=== PATIENT | male | born 1965 | race Caucasian/White ===

== ENCOUNTER 2017-01-21 14:48 | Emergency (ER) | payer OTHER ==
[2017-01-21 14:53] VITALS: RESP 16; TEMP 97.5; O2SAT 96
--- NOTE | 2017-01-21 15:30 | EDPHY ---
H & P Stated Complaint: pain in calf Time Seen by Provider: 01/21/17 14:56 HPI/ROS: CHIEF COMPLAINT: Calf pain HISTORY OF PRESENT ILLNESS: The patient presents to the ED with a several day history of unprovoked left calf pain. The patient has remote history of DVT that was diagnosed in 2013. He was treated for approximately 6 months with Coumadin. The patient does not believe he had hypercoagulable workup at that time. The patient denies any acute chest pain or shortness of breath. The patient denies recent in mobility, surgery or trauma. The patient does report that he runs frequently. The patient denies any additional acute medical complaints. REVIEW OF SYSTEMS: A comprehensive 10 point review of systems is otherwise negative aside from elements mentioned in the history of present illness. Source: Patient - Personal History Current Tetanus/Diphtheria Vaccine: Yes - Medical/Surgical History Hx Asthma: No Hx Chronic Respiratory Disease: No Hx Diabetes: No Hx Cardiac Disease: No Hx Renal Disease: No Hx Cirrhosis: No Hx Alcoholism: No Hx HIV/AIDS: No Hx Splenectomy or Spleen Trauma: No Other PMH: Depression and gout; kidney stone surgery, DVT, COPD - Social History Smoking Status: Never smoked - Physical Exam Exam: General Appearance: Alert, no distress Eyes: Pupils equal and round no pallor or injection ENT, Mouth: Mucous membranes moist Respiratory: There are no retractions, lungs are clear to auscultation Cardiovascular: Regular rate and rhythm Gastrointestinal: Abdomen is soft and nontender, no masses, bowel sounds normal Neurological: A&O, normal motor function, normal sensory exam, normal cranial nerves Skin: Warm and dry, no rashes Musculoskeletal: Neck is supple nontender Extremities: Tenderness to palpation left calf, 2+ dorsalis pedis and posterior tibial pulses, sensation intact to light touch Constitutional: Initial Vital Signs Temperature (C) 36.4 C 01/21/17 14:49 Heart Rate 70 01/21/17 14:49 Respiratory Rate 16 01/21/17 14:49 Blood Pressure 123/68 H 01/21/17 14:49 O2 Sat (%) 96 01/21/17 14:49 O2 Delivery Mode Room Air Allergies/Adverse Reactions: No Known Allergies Allergy (Verified 09/09/14 11:11) Home Medications: Medication Instructions Recorded ALLOPURINOL 07/23/10 Prozac 07/23/10 Fluticasone Nasal [Flonase nasal 2 sprays NASAL DAILY #1 mdi 10/29/10 spray] Medical Decision Making - Diagnostics Imaging Results: Left lower extremity ultrasound: Negative for DVT or Nicole cyst. Images reviewed by myself and discussed with radiologist. ED Course/Re-evaluation: I reviewed the patient's past medical records. The patient did have a limited negative hypercoagulable workup during his last DVT. The patient does have calf tenderness. He was taken for a ultrasound of his left calf which demonstrates no evidence of a DVT or Nicole cyst. At this point time I do feel the patient can safely be discharged home. The patient is instructed to repeat the ultrasound in 2 weeks for any ongoing symptoms. The patient has been instructed to return to the ED for worsening symptoms, chest pain, difficulty breathing or other concerns. Differential Diagnosis: Differential diagnosis considered includes DVT, cellulitis, Nicole cyst, myofascial strain Departure - Departure Disposition: Home, Routine, Self-Care Clinical Impression: Strain of calf muscle Qualifiers: Encounter type: initial encounter Laterality: left Qualified Code(s): S86.812A - Strain of other muscle(s) and tendon(s) at lower leg level, left leg, initial encounter Condition: Good Instructions: Musculoskeletal Pain (ED) Additional Instructions: 1. Tylenol and ibuprofen as needed for pain. 2. Please repeat the ultrasound in 2 weeks for any persistent pain, swelling or ongoing symptoms. 3. Please return to the ED sooner for increasing pain, fever, numbness, weakness , difficulty breathing or other concerns. 4. Please follow-up with your primary care provider as scheduled. 5. Your ultrasound today demonstrates no evidence of a DVT. Referrals: Gita Sanon MD [Primary Care Provider] - As per Instructions
[2017-01-21 15:58] VITALS: BP 104/68; PULSE 74
== END 2017-01-21 15:57 | disposition home or self-care (01) ==
DX: S86.812A Strain of other muscle(s) and tendon(s) at lower leg level, left leg, initial encounter (principal); Z86.718 Personal history of other venous thrombosis and embolism; X58.XXXA Exposure to other specified factors, initial encounter; Y99.8 Other external cause status; Y93.02 Activity, running

== ENCOUNTER 2017-08-15 21:22 | Emergency (ER) | payer OTHER ==
--- NOTE | 2017-08-15 21:45 | EDPHY ---
H & P Stated Complaint: LOW BACK PAIN TO LEFT SIDE . SOME DIFFICULTY URINATING Time Seen by Provider: 08/15/17 21:35 HPI/ROS: CHIEF COMPLAINT: Left lower quadrant pain, "I think I have a kidney stone " HISTORY OF PRESENT ILLNESS: 51-year-old male with prior history of nephrolithiasis requiring lithotripsy complaining of 2 days of left flank and left lower quadrant abdominal pain, urinary hesitancy . Bowel movements normal. No genital trauma or straddle injury. No nausea or vomiting. No perineal pain. No pain with defecation. No history of prostatitis or BPH. No hematuria or urethral discharge. No history of diverticulitis or diverticulosis. REVIEW OF SYSTEMS: A ten point review of systems was performed and is negative with the exception of the items mentioned in the HPI PAST MEDICAL & SURGICAL HISTORY: Prior nephrolithiasis history requiring lithotripsy SOCIAL HISTORY:nonsmoker PHYSICAL EXAM (Prior to examination, patient consented to physical exam, hands were washed and my usual and customary physical exam procedures followed) 1) GENERAL: Well-developed, well-nourished, alert and oriented. Appears to be in no acute distress. Smiling, shakes my hand, pleasant 2) HEAD: Normocephalic, atraumatic 3) HEENT: Pupils equal, round, reactive to light bilaterally. Sclera anicteric. Nasopharynx, oropharynx, clear, no lesions. 4) NECK: Full range of motion, no meningeal signs. 5) LUNGS: Clear auscultation bilaterally, no wheezes, no rhonchi, no retractions. 6) HEART: Regular rate and rhythm, no murmur, no heave, no gallop. 7) ABDOMEN: No guarding, no rebound, no focal tenderness, negative McBurney's, negative Pastrana's, negative Rovsing's, negative peritoneal sign, no left lower quadrant pain, I am unable to elicit abdominal pain on exam 8) MUSCULOSKELETAL: Moving all extremities, no focal areas of tenderness, no obvious trauma. No peripheral edema or discoloration. 9) BACK: No CVA tenderness, no midline vertebral tenderness, no fluctuance, no step-off, no obvious trauma, no visual or palpable abnormality. 10) SKIN: No rash, no petechiae. 11) : Circumcised, bilateral testicles nontender , non high-riding, bilateral cremasteric reflex present and brisk. Scrotal examination normal with no evidence of Radha's gangrene, no erythema, no cellulitis, no crepitus. Perineum nontender, no crepitus. Bilateral inguinal examination unremarkable no hernia, no mass. DIFFERENTIAL DIAGNOSIS: In no particular order including but not limited to diverticulitis, BPH, prostatitis, nephrolithiasis, cystitis, pyelonephritis - Personal History Current Tetanus/Diphtheria Vaccine: Yes Current Tetanus Diphtheria and Acellular Pertussis (TDAP): Yes - Medical/Surgical History Hx Asthma: No Hx Chronic Respiratory Disease: No Hx Diabetes: No Hx Cardiac Disease: No Hx Renal Disease: No Hx Cirrhosis: No Hx Alcoholism: No Hx HIV/AIDS: No Hx Splenectomy or Spleen Trauma: No Other PMH: Depression and gout; kidney stone surgery, DVT, COPD - Social History Smoking Status: Never smoked Constitutional: Initial Vital Signs Temperature (C) 36.4 C 08/15/17 21:23 Heart Rate 59 L 08/15/17 21:23 Respiratory Rate 18 08/15/17 21:23 Blood Pressure 129/73 H 08/15/17 21:23 O2 Sat (%) 96 08/15/17 21:23 O2 Delivery Mode Room Air Allergies/Adverse Reactions: No Known Allergies Allergy (Verified 08/15/17 21:28) Home Medications: Medication Instructions Recorded ALLOPURINOL 400 mg DIAL 07/23/10 Prozac 07/23/10 Aspirin EC [Aspirin EC 81 mg (*)] 81 mg PO DAILY 08/15/17 FLUoxetine [PROzac] 20 mg PO 08/15/17 Fluticasone Propionate [Flovent 110 mcg IH 08/15/17 Diskus] Tamsulosin HCl [Flomax 0.4 MG (*)] 0.4 mg PO DAILY 08/15/17 Medical Decision Making - Diagnostics Imaging Results: Imaging Impressions Abdomen/Pelvis CT 08/15/17 21:42 Impression: Nothing acute. No renal stones or hydronephrosis. Findings and recommendations discussed with Madhu Herr at 10:00 PM hour , 08/15/2017. Final report concurs with initial preliminary interpretation. Attention: This examination does not use radiographic contrast, and as such, provides only a limited evaluation of the abdomen, pelvis, and retroperitoneum. If there is further clinical suspicion for pathological conditions, a complete CT evaluation of the abdomen and pelvis utilizing intravenous, oral, and rectal contrast should be considered. Images reviewed myself ED Course/Re-evaluation: 11:10 p.m.: Patient was re-evaluated with serial examinations. He continues to appear well. Re-examined his abdomen which remained soft no guarding no rebound. I discussed his diagnostic results showing no bacteriuria or pyuria. He is noted to have hematuria, specific etiology of which is not completely clear as was no radiographic evidence of ureterolithiasis/nephrolithiasis. I think that acute diverticulitis is less than likely in absence of radiographic findings consistent with similar. Doubt acute prostatitis. Doubt hernia. Doubt testicular torsion absence of testicular pain and bilateral cremasteric reflex present. At this time, the specific etiology of patient's symptoms is not completely clear and I do not think that further diagnostic studies are definitively indicated. I explained this the patient and he verbalized understanding , agreement, acceptance of this. He does have established pressure relationship with Dr. Lindsey Ni and Dr. Clark Ulloa with whom I recommend he follow-up. In the meantime if he develops fevers, back or flank pain, or any other symptoms to return to the ER immediately for re-evaluation. - Data Points Laboratory Results: Laboratory Results 08/15/17 22:20 08/15/17 22:20 08/15/17 08/15/17 08/15/17 22:20 22:20 21:30 WBC 7.58 10^3/uL 10^3/uL (3.80-9.50) RBC 4.73 10^6/uL 10^6/uL (4.40-6.38) Hgb 15.2 g/dL g/dL (13.7-17.5) Hct 42.0 % % (40.0-51.0) MCV 88.8 fL fL (81.5-99.8) MCH 32.1 pg pg (27.9-34.1) MCHC 36.2 g/dL g/dL (32.4-36.7) RDW 12.8 % % (11.5-15.2) Plt Count 225 10^3/uL 10^3/uL (150-400) MPV 9.4 fL fL (8.7-11.7) Neut % (Auto) 46.3 % % (39.3-74.2) Lymph % (Auto) 42.2 % % (15.0-45.0) [place] % (Auto) 9.0 % % (4.5-13.0) Eos % (Auto) 1.6 % % (0.6-7.6) Baso % (Auto) 0.8 % % (0.3-1.7) Nucleat RBC Rel Count 0.0 % % (0.0-0.2) Absolute Neuts (auto) 3.51 10^3/uL 10^3/uL (1.70-6.50) Absolute Lymphs (auto) 3.20 10^3/uL H 10^3/uL (1.00-3.00) Absolute Monos (auto) 0.68 10^3/uL 10^3/uL (0.30-0.80) Absolute Eos (auto) 0.12 10^3/uL 10^3/uL (0.03-0.40) Absolute Basos (auto) 0.06 10^3/uL 10^3/uL (0.02-0.10) Absolute Nucleated RBC 0.00 10^3/uL 10^3/uL (0-0.01) Immature Gran % 0.1 % % (0.0-1.1) Immature Gran # 0.01 10^3/uL 10^3/uL (0.00-0.10) Sodium 138 mEq/L mEq/L (134-144) Potassium 3.9 mEq/L mEq/L (3.5-5.2) Chloride 102 mEq/L mEq/L (97-110) Carbon Dioxide 25 mEq/l mEq/l (22-31) Anion Gap 11 mEq/L mEq/L (8-16) BUN 14 mg/dL mg/dL (7-23) Creatinine 0.9 mg/dL mg/dL (0.7-1.3) Estimated GFR > 60 Glucose 74 mg/dL mg/dL (70-100) Calcium 10.0 mg/dL mg/dL (8.5-10.4) Total Bilirubin 0.9 mg/dL mg/dL (0.1-1.4) Conjugated Bilirubin 0.2 mg/dL mg/dL (0.0-0.5) Unconjugated Bilirubin 0.7 mg/dL mg/dL (0.0-1.1) AST 31 IU/L IU/L (17-59) ALT 51 IU/L IU/L (21-72) Alkaline Phosphatase 67 IU/L IU/L (38-126) Total Protein 7.4 g/dL g/dL (6.3-8.2) Albumin 4.5 g/dL g/dL (3.5-5.0) Lipase 90 IU/L IU/L (23-300) Urine Color YELLOW Urine Appearance CLEAR Urine pH 6.0 (5.0-7.5) Ur Specific [place] 1.008 (1.002-1.030) Urine Protein NEGATIVE (NEGATIVE) Urine Ketones TRACE H (NEGATIVE) Urine Blood 1+ H (NEGATIVE) Urine Nitrate NEGATIVE (NEGATIVE) Urine Bilirubin NEGATIVE (NEGATIVE) Urine Urobilinogen NEGATIVE EU EU (0.2-1.0) Ur Leukocyte Esterase NEGATIVE (NEGATIVE) Urine RBC 5-10 /hpf H /hpf (0-3) Urine WBC 1-3 /hpf /hpf (0-3) Ur Epithelial Cells NONE SEEN /lpf /lpf (NONE-1+) Urine Bacteria TRACE /hpf H /hpf (NONE SEEN) Urine Mucus TRACE /lpf /lpf (NONE-1+) Urine Glucose NEGATIVE (NEGATIVE) Departure - Departure Disposition: Home, Routine, Self-Care Clinical Impression: Abdominal pain Qualifiers: Abdominal location: left lower quadrant Qualified Code(s): R10.32 - Left lower quadrant pain Condition: Good Instructions: Acute Abdominal Pain (ED) Additional Instructions: Seek immediate medical attention if you develop new or worsening symptoms, if you develop fevers, chills, inability to tolerate oral intake or any other symptoms that concerns you. Referrals: Clark Ulloa DO [Doctor of Osteopathy] - 1-2 days without fail Lindsey Ni MD [Medical Doctor] - 1-2 days without fail
[2017-08-15 22:28] LABS: % IMMATURE GRANULYOCYTES 0.1 % (0.0-1.1); ABSOLUTE IMMATURE GRANULOCYTES 0.01 10^3/uL (0.00-0.10); ADD DIFF? NO; ADD MORPH? NO; ADD SCAN? NO; ATYPICAL LYMPHOCYTE FLAG 0 (0-99); FRAGMENT RBC FLAG 0 (0-99); HEMOGLOBIN 15.2 g/dL (13.7-17.5); LEFT SHIFT FLG 0 (0-99); LIPEMIA HEMOLYSIS FLAG 90 (0-99); MEAN CELL HEMOGLOBIN 32.1 pg (27.9-34.1); MEAN CELL HEMOGLOBIN CONCENTR. 36.2 g/dL (32.4-36.7); MEAN CELL VOLUME 88.8 fL (81.5-99.8); MEAN PLATELET VOLUME 9.4 fL (8.7-11.7); PLATELET CLUMPS FLAG 0 (0-99); PLATELET COUNT 225 10^3/uL (150-400); RED BLOOD CELL COUNT 4.73 10^6/uL (4.40-6.38); RED CELL DISTRIBUTION WIDTH 12.8 % (11.5-15.2)
[2017-08-15 22:38] LABS: COLOR YELLOW; LEUKOCYTE ESTERASE,URINE NEGATIVE (NEGATIVE); NITRITE,URINE NEGATIVE (NEGATIVE)
[2017-08-15 22:42] LABS: BACTERIA TRACE /hpf (NONE SEEN); MUCUS TRACE /lpf (NONE-1+)
[2017-08-15 22:57] LABS: ALANINE AMINOTRANSFERASE 51 IU/L (21-72); ALBUMIN 4.5 g/dL (3.5-5.0); ALKALINE PHOSPHATASE 67 IU/L (38-126); ANION GAP 11 mEq/L (8-16); ASPARTATE AMINOTRANSFERASE 31 IU/L (17-59); BILIRUBIN,TOTAL 0.9 mg/dL (0.1-1.4); BILIRUBIN-CONJUGATED 0.2 mg/dL (0.0-0.5); BILIRUBIN-UNCONJUGATED 0.7 mg/dL (0.0-1.1); CARBON DIOXIDE 25 mEq/l (22-31); CHLORIDE 102 mEq/L (97-110); CREATININE 0.9 mg/dL (0.7-1.3); GLOMERULAR FILTRATION RATE > 60; GLUCOSE 74 mg/dL (70-100); POTASSIUM 3.9 mEq/L (3.5-5.2); SODIUM 138 mEq/L (134-144); TOTAL PROTEIN 7.4 g/dL (6.3-8.2)
[2017-08-15 23:27] VITALS: BP 110/68; PULSE 57; RESP 16; TEMP 97.7; O2SAT 95
== END 2017-08-15 23:26 | disposition home or self-care (01) ==
DX: R10.32 Left lower quadrant pain (principal); J44.9 Chronic obstructive pulmonary disease, unspecified; Z79.82 Long term (current) use of aspirin

== ENCOUNTER 2018-03-26 17:18 | Emergency (ER) | payer OTHER ==
--- NOTE | 2018-03-26 18:20 | EDPHY ---
H & P Time Seen by Provider: 03/26/18 18:08 HPI/ROS: Chief complaint. Urinary retention HPI. 52-year-old man with known history of benign prostatic hypertrophy. He has had recent upper respiratory infection and has been using antihistamines. For the last 1-2 days the patient has been having urinary retention and difficulty urinating and emptying his bladder completely. He does take Flomax and has been continuing to take his Flomax. He has had similar symptoms previously. Otherwise no fever. He has sense of full bladder and urgency. ROS Constitutional. no fever/chills, no weakness Eyes. no problems with vision ENT. no sore throat, no nasal drainage Cardiovascular. no chest pain Respiratory. no shortness of breath, no cough Abdominal. no abdominal pain, no nausea/vomiting, no diarrhea . Difficulty urinating MS. no calf pain/swelling, no neck/back pain, no joint pain Skin. no rash Lymph. no swollen glands Neuro. no headache, no dizziness, no difficulty walking or with speech Past Medical/Surgical History: Past medical history is significant for depression, gout, kidney stone DVT, COPD Social History: , nonsmoker, no alcohol Smoking Status: Never smoked Physical Exam: General Appearance: Alert well-developed male moderate distress vital signs stable Eyes: Pupils equal and round no pallor or injection. ENT, Mouth: Mucous membranes are moist. Respiratory: There are no retractions, lungs are clear to auscultation. Cardiovascular: Regular rate and rhythm. Gastrointestinal: Suprapubic tenderness and fullness Neurological: Awake and alert, sensory and motor exams grossly normal. Skin: Warm and dry, no rashes. Musculoskeletal: Neck is supple nontender. Extremities symmetrical, full range of motion. Psychiatric: Patient is oriented X 3, there is no agitation. Constitutional: Initial Vital Signs Temperature (C) 36.5 C 03/26/18 17:26 Heart Rate 76 03/26/18 17:26 Respiratory Rate 17 03/26/18 17:26 Blood Pressure 114/80 03/26/18 17:26 O2 Sat (%) 93 03/26/18 17:26 O2 Delivery Mode Room Air Allergies/Adverse Reactions: No Known Allergies Allergy (Verified 03/26/18 17:25) Home Medications: Medication Instructions Recorded ALLOPURINOL 400 mg DIAL 07/23/10 Prozac 07/23/10 Aspirin EC [Aspirin EC 81 mg (*)] 81 mg PO DAILY 08/15/17 FLUoxetine [PROzac] 20 mg PO 08/15/17 Fluticasone Propionate [Flovent 110 mcg IH 08/15/17 Diskus] Tamsulosin HCl [Flomax 0.4 MG (*)] 0.4 mg PO DAILY 08/15/17 AMOXICILLIN 03/26/18 Thera Flu 03/26/18 Medical Decision Making Procedures: Bladder scan after patient urinates reveals 150-200 mL urine retained in bladder. ED Course/Re-evaluation: Patient and I discussed bladder scan results. He would prefer to not have a catheter. He agrees to return should he not be able to urinate. We discussed laboratory evaluation, treatment plan including criteria for return. He expresses understanding and agreement Differential Diagnosis: Urinary retention in a man with known BPH and has been using antihistamines. No evidence for UTI - Data Points Laboratory Results: 03/26/18 18:05 Urine Color YELLOW Urine Appearance CLEAR Urine pH 7.0 (5.0-7.5) Ur Specific [place] 1.013 (1.002-1.030) Urine Protein NEGATIVE (NEGATIVE) Urine Ketones NEGATIVE (NEGATIVE) Urine Blood NEGATIVE (NEGATIVE) Urine Nitrate NEGATIVE (NEGATIVE) Urine Bilirubin NEGATIVE (NEGATIVE) Urine Urobilinogen 2.0 EU H EU (0.2-1.0) Ur Leukocyte Esterase NEGATIVE (NEGATIVE) Urine RBC 5-10 /hpf H /hpf (0-3) Urine WBC 1-3 /hpf /hpf (0-3) Ur Epithelial Cells TRACE /lpf /lpf (NONE-1+) Urine Mucus TRACE /lpf /lpf (NONE-1+) Urine Glucose NEGATIVE (NEGATIVE) Departure - Departure Disposition: Home, Routine, Self-Care Clinical Impression: Acute retention of urine Condition: Good Instructions: Urinary Retention in Men (ED) Additional Instructions: Continue Flomax. Return for inability urinate. Recheck in 2-3 days for continuing symptoms. Referrals: Clark Ulloa DO [Primary Care Provider] - As per Instructions Lindsey Ni MD [Medical Doctor] - 2-3 days, if not improved
[2018-03-26 19:14] VITALS: BP 116/76
== END 2018-03-26 19:14 | disposition home or self-care (01) ==
DX: R33.9 Retention of urine, unspecified (principal); J44.9 Chronic obstructive pulmonary disease, unspecified; Z79.82 Long term (current) use of aspirin

== ENCOUNTER → 2018-11-18 | Outpatient (CLI) | payer OTHER | LOC: BMCIMAGING 09:18 | PROVIDERS: ATTEND Family Medicine | DX: N63.10 Unspecified lump in the right breast, unspecified quadrant (principal) ==